=== PATIENT | male | born 1985 | race Caucasian/White ===

== ENCOUNTER 2018-08-25 09:32 | Emergency (ER) | payer SELFPAY ==
[2018-08-25 10:09] LABS: Absolute Lymphocytes (CBC) 0.6 K/uL (0.7-4.9); Basophils % 1.8 % (0-1.3); Eosinophils % 0.1 % (0-4.4); Hematocrit 43.8 % (39.6-49.0); Lymphocytes % 8.9 % (15.3-44.8); MPV 7.5 fL (7.6-11.3); Monocytes % 14.9 % (3.3-12.3); RBC Red Blood Cell Count 4.99 M/uL (4.33-5.43)
[2018-08-25] MEDS ORDERED: NA CHLORIDE 0.9% 0 ML ONE ×2 (10:18)
[2018-08-25] MEDS ORDERED: LORazepam 2 MG/ML VIAL ONE (10:18)
[2018-08-25] MEDS ORDERED: NA CHLORIDE 0.9% 1,000 ML ONE (10:19)
[2018-08-25 10:21] LABS: Protime INR 1.11
--- NOTE | 2018-08-25 10:28 | ER ---
Nurse's Notes [facility] Name: Aaron Spencer Age: 33 yrs Sex: Male : 1985 Arrival Date: 08/25/2018 Time: 09:34 Bed 4 Private MD: Diagnosis: Presentation: 08/25 09:38 Presenting complaint: EMS states: pt reports using Meth about 3-4 days ago, couldn't sg "come down off of it" so took about 2 xanax this morning, pt states feeling anxious but denies any pain at this time. Transition of care: patient was not received from another setting of care. Onset of symptoms was August 25, 2018. Risk Assessment: Do you want to hurt yourself or someone else? Patient reports no desire to harm self or others. Initial Sepsis Screen: Does the patient meet any 2 criteria? Altered Mental Status. HR > 90 bpm. Does the patient have a suspected source of infection? No. Patient's initial sepsis screen is negative. Care prior to arrival: None. 09:38 Method Of Arrival: EMS: [facility] sg 09:38 Acuity: MIC 3 sg Historical: - Allergies: 09:41 No Known Allergies; sg - Home Meds: 09:41 None [Active]; sg - PMHx: 09:41 None; sg - PSHx: 09:41 None; sg - Immunization history:: Adult Immunizations not up to date. - Social history:: Smoking status: Patient uses tobacco products, Patient uses street drugs, Methamphetamine (Meth). - Ebola Screening: : Patient negative for fever greater than or equal to 101.5 degrees Fahrenheit, and additional compatible Ebola Virus Disease symptoms Patient denies exposure to infectious person Patient denies travel to an Ebola-affected area in the 21 days before illness onset No symptoms or risks identified at this time. Screenin:47 Abuse screen: Denies threats or abuse. Denies injuries from another. Nutritional sg screening: No deficits noted. Tuberculosis screening: No symptoms or risk factors identified. Never had TB. Fall Risk None identified. Assessment: 09:46 General: Appears in no apparent distress. comfortable, well groomed, well developed, sg well nourished, Behavior is cooperative, anxious, restless. Pain: Denies pain. Neuro: Level of Consciousness is awake, alert, obeys commands, Oriented to person, place, time, Social Insurance Specialist are equal bilaterally Moves all extremities. Full function Speech is normal, but rapid. Facial symmetry appears normal, Pupils are dilated. Cardiovascular: Patient's skin is warm and dry. Pulses are palpable in right radial artery and left radial artery Chest pain is denied. Respiratory: Airway is patent Respiratory effort is even, unlabored, Respiratory pattern is regular, symmetrical, Denies cough, shortness of breath labored breathing. GI: Abdomen is round non-distended, Reports normal bowel habits, tolerance of fluids, tolerance of food. : No signs and/or symptoms were reported regarding the genitourinary system. EENT: No signs and/or symptoms were reported regarding the EENT system. Derm: Skin is intact, is healthy with good turgor, Skin is diaphoretic, Skin is normal, Skin temperature is warm. Musculoskeletal: No signs and/or symptoms reported regarding the musculoskeletal system. 10:10 Reassessment: Patient appears in no apparent distress at this time. Patient and/or sg family updated on plan of care and expected duration. Pain level reassessed. Patient is alert, oriented x 3, equal unlabored respirations, skin warm/dry/pink. pt reports he would like to leave, pt states " am I under arrest? 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 Vital Signs: 09:40 BP 152 / 88; Pulse 136 MON; Resp 17 S; Temp 98.9; Pulse Ox 100% on R/A; Pain 0/10; sg ED Course: 09:34 Patient arrived in ED. sg 09:34 Xavier Summers PA is [facility]. jr8 09:34 Yefri Busch MD is Attending Physician. jr8 09:40 Arm band placed on. sg 09:42 Valuables car carrera given to security. bd 09:43 Triage completed. sg 09:45 Jan Sanchez, NOE is Primary Nurse. sg 09:48 EKG done, by audit tech. reviewed by Xavier ROLLINS. dt2 Administered Medications: 10:26 Not Given (Other Intervention Used): NS 0.9% 1000 ml IV at 1000 ml once sg 10:26 Not Given (Patient Refused): Ativan 2 mg IVP once sg Outcome: 10:09 AMA AMA form signed sg 10:25 Condition: stable sg 10:25 Instructed on follow up and referral plans. safety practices, stop abusing drugs Demonstrated understanding of instructions. 10:27 Patient left the ED. sg Signatures: Valencia Sanchez Steven, RN RN sg Xavier Summers PA PA jr8 Rosamaria Faustin dt2
[2018-08-25 10:31] LABS: ALT/SGPT 40 U/L (12-78); AST/SGOT 34 U/L (15-37); Albumin 3.6 g/dL (3.4-5.0); Alkaline Phosphatase 67 U/L (45-117); BUN Blood Urea Nitrogen 18 mg/dL (7-18); Bicarbonate 23 mmol/L (21-32); Bilirubin Direct 0.3 mg/dL (0-0.2); Bilirubin Total 1.2 mg/dL (0.2-1.0); Glucose Level 90 mg/dL (74-106); Protein, Total 7.4 g/dL (6.4-8.2); Sodium Level 141 mmol/L (136-145)
[2018-08-25 10:32] LABS: Barbiturates NEGATIVE (NEGATIVE); Benzodiazepines POSITIVE (NEGATIVE); Cocaine NEGATIVE (NEGATIVE); METHAMPHETAM POSITIVE (NEGATIVE); Methadone NEGATIVE (NEGATIVE); Opiates NEGATIVE (NEGATIVE); Phencyclidine NEGATIVE (NEGATIVE); THC Cannibis NEGATIVE (NEGATIVE)
--- NOTE | 2018-08-25 11:07 | EKG ---
Test Date: 2018-08-25 Test Time: 09:41:03 Outdoor Adventure Leader: YINKA MEASUREMENT RESULTS: Intervals: Rate: 132 MI: 132 QRSD: 98 QT: 304 QTc: 450 Seymour: P: 81 MI: 132 QRS: 70 T: 71 INTERPRETIVE STATEMENTS: Sinus tachycardia Otherwise normal ECG No previous ECG available for comparison Electronically Signed On 08-25-18 11:07:05 CDT by Trey Griffiths
--- NOTE | 2018-08-26 10:27 | EDPHYS ---
Physician Documentation [facility] Name: Aaron Spencer Age: 33 yrs Sex: Male : 1985 Arrival Date: 08/25/2018 Time: 09:34 Bed 4 Private MD: ED Physician Yefri Busch HPI: 08/25 17:27 This 33 yrs old Male presents to ER via EMS with complaints of Medical jr8 Complaint. 17:27 The patient presents to the emergency department after a known overdose, that was jr8 intentional. Context: Method: the patient has a confirmed or suspected inhalation. Associated signs and symptoms: Pertinent positives: anxiety, palpitations. Severity of symptoms: At their worst the symptoms were moderate in the emergency department the symptoms are unchanged. The patient has not experienced similar symptoms in the past. The patient has not recently seen a physician. Patient stated that he had been doing meth for the past few days. Stated that it is making him feel horrible but could not stop. Patient anxious and jittery upon arrival . Historical: - Allergies: 09:41 No Known Allergies; sg - Home Meds: 09:41 None [Active]; sg - PMHx: 09:41 None; sg - PSHx: 09:41 None; sg - Immunization history:: Adult Immunizations not up to date. - Social history:: Smoking status: Patient uses tobacco products, Patient uses street drugs, Methamphetamine (Meth). - Ebola Screening: : Patient negative for fever greater than or equal to 101.5 degrees Fahrenheit, and additional compatible Ebola Virus Disease symptoms Patient denies exposure to infectious person Patient denies travel to an Ebola-affected area in the 21 days before illness onset No symptoms or risks identified at this time. ROS: 17:27 Eyes: Negative for injury, pain, redness, and discharge, ENT: Negative for injury, jr8 pain, and discharge, Neck: Negative for injury, pain, and swelling, Respiratory: Negative for shortness of breath, cough, wheezing, and pleuritic chest pain, Abdomen/GI: Negative for abdominal pain, nausea, vomiting, diarrhea, and constipation, Back: Negative for injury and pain, MS/Extremity: Negative for injury and deformity, Skin: Negative for injury, rash, and discoloration, Neuro: Negative for headache, weakness, numbness, tingling, and seizure. 17:27 Cardiovascular: Positive for palpitations, Negative for chest pain, edema, orthopnea, paroxysmal nocturnal dyspnea. 17:27 Psych: Positive for anxiety. Exam: 17:27 Eyes: Pupils equal round and reactive to light, extra-ocular motions intact. Lids and jr8 lashes normal. Conjunctiva and sclera are non-icteric and not injected. Cornea within normal limits. Periorbital areas with no swelling, redness, or edema. ENT: Nares patent. No nasal discharge, no septal abnormalities noted. Tympanic membranes are normal and external auditory canals are clear. Oropharynx with no redness, swelling, or masses, exudates, or evidence of obstruction, uvula midline. Mucous membranes moist. Neck: Trachea midline, no thyromegaly or masses palpated, and no cervical lymphadenopathy. Supple, full range of motion without nuchal rigidity, or vertebral point tenderness. No Meningismus. Respiratory: Lungs have equal breath sounds bilaterally, clear to auscultation and percussion. No rales, rhonchi or wheezes noted. No increased work of breathing, no retractions or nasal flaring. Abdomen/GI: Soft, non-tender, with normal bowel sounds. No distension or tympany. No guarding or rebound. No evidence of tenderness throughout. Back: No spinal tenderness. No costovertebral tenderness. Full range of motion. Skin: Warm, dry with normal turgor. Normal color with no rashes, no lesions, and no evidence of cellulitis. MS/ Extremity: Pulses equal, no cyanosis. Neurovascular intact. Full, normal range of motion. Neuro: Awake and alert, GCS 15, oriented to person, place, time, and situation. Cranial nerves II-XII grossly intact. Motor strength 5/5 in all extremities. Sensory grossly intact. Cerebellar exam normal. Normal gait. 17:27 Constitutional: The patient appears alert, awake, agitated, anxious. 17:27 Cardiovascular: Rate: tachycardic, Rhythm: regular, Pulses: Pulses are 2+ in right radial artery and left radial artery. Heart sounds: normal, normal S1and S2, no S3 or S4, no murmur, no rub, no gallop, Edema: is not appreciated, JVD: is not appreciated. Vital Signs: 09:40 BP 152 / 88; Pulse 136 MON; Resp 17 S; Temp 98.9; Pulse Ox 100% on R/A; Pain 0/10; sg MDM: 09:39 Patient medically screened. [facility] 17:27 Data reviewed: vital signs, nurses notes, lab test result(s), EKG. Data interpreted: jr8 Pulse oximetry: on room air is 100 %. Interpretation: normal. Counseling: I had a detailed discussion with the patient and/or guardian regarding: the historical points, exam findings, and any diagnostic results supporting the discharge/admit diagnosis, lab results. 17:34 ED course: After receiving fluids and having blood work completed. Patient no longer jr8 wanted to stay. Explained to patient that going home at this time is not advised. Still tachycardic and anxious. Still do not have all blood work back. Patient did not care and stated that if he is not under arrest he is not staying. Patient alert and oriented to person, place, time, event. Can answer all questions appropriately. Signed AMA and left . 08/25 09:52 Order name: Acetaminophen [facility] 08/25 09:52 Order name: Basic Metabolic Panel; Complete Time: 11:57 08/25 09:52 Order name: CBC with Diff; Complete Time: 11:57 08/25 09:52 Order name: ETOH Level; Complete Time: 11:57 08/25 09:52 Order name: Hepatic Function; Complete Time: 11:57 08/25 09:52 Order name: PT-INR; Complete Time: 11:57 08/25 09:52 Order name: Ptt, Activated; Complete Time: 11:57 08/25 09:52 Order name: Salicylate; Complete Time: 11:57 08/25 09:52 Order name: Urine Drug Screen; Complete Time: 11:57 08/25 09:52 Order name: EKG; Complete Time: 09:54 08/25 09:52 Order name: EKG - Nurse/Tech; Complete Time: 10:02 08/25 09:53 Order name: Acetaminophen Level; Complete Time: 11:57 [facility] 08/25 09:52 Order name: IV Saline Lock; Complete Time: 10:01 08/25 09:52 Order name: Labs collected and sent; Complete Time: 10:01 08/25 09:52 Order name: Urine Dipstick-Ancillary (obtain specimen); Complete Time: 10:01 jr8 Administered Medications: 10:26 Not Given (Other Intervention Used): NS 0.9% 1000 ml IV at 1000 ml once sg 10:26 Not Given (Patient Refused): Ativan 2 mg IVP once sg Disposition: 08/25/18 10:27 Patient has left against medical advice. - Patients states they are going to Home. - Condition is Stable. Follow up: Private Physician; When: Today; Reason: Re-evaluation by your physician. Addendum: 08/27/2018 07:57 Co-signature as Attending Physician, Yefri Busch MD. g s Signatures: Dispatcher [employer] EDMS Jan Sanchez RN RN Xavier Santos PA PA jr8 Yefri Busch MD MD
== END 2018-08-25 10:27 | disposition left against medical advice (07) ==
LOC: ER 09:32
DX: F41.9 Anxiety disorder, unspecified (principal); R00.2 Palpitations; Z72.0 Tobacco use; Z53.29 Procedure and treatment not carried out because of patient's decision for other reasons
CPT/HCPCS: 36415; 80048; 80076; 80307; 80320; 80329; 85025; 85610; 85730; 93005; 99283; J7030